=== PATIENT | female | born 1945 | race Two or more races ===

== ENCOUNTER → 2016-02-22 | Day surgery (SDC) | payer MEDICARE, OTHER ==
--- NOTE | 2016-02-18 16:53 | Pre-Procedure Note/Attestation ---
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 I attest that, if there was a reasonable possibility of needing a blood transfusion, the patient (or the patient's legal lead generation representative) was given the [facility] standardized written summary, pursuant to the Asher Maddy Blood Safety Act ([place] Health and Safety Code # 1645, as amended). I attest that I re-evaluated the patient just prior to the surgery and that there has been no change in the patient's H&P, except as documented below: MINA KIRBY Feb 18, 2016 16:53
[2016-02-22] VITALS (8 sets, daily range): BP systolic 120–131; BP diastolic 54–78
[~2016-02-22] VITALS: Ht 165.1 cm; Wt 78.5 kg
[~2016-02-22] MED LIST: ASPIR 8181 MG ORAL; Akten 3.5% 1ml Btl BOTH EYES ONE; Akten 3.5% 1ml Btl ONE; Bupivacaine 0.75% 30ml vial INJ ONE; DiphenhydrAMINE 50mg/ml Inj IVP PRN; Ketorolac 30mg Inj IV PRN; LR 1000ml 1,000 ML IVLG SCH; LR 1000ml ONE; Lidocaine 1% 10mg/ml/Epi 0.005mg/ml 30ml vial INJ ONE; Lidocaine 2% 20mg/ml/Epi 0.005mg/ml 20ml vial ONE; Maxitrol Opth Oint 3.5gm BOTH EYES ONE; Midazolam 2mg/2ml Inj ONE; NS Irrig 1000ml ONE; PAXIL10 MG ORAL; Povidone-Iodine 5% opth solution ONE; Propofol 10mg/ml 20ml IV ONE; Sterile Water Irrig 1000ml IRRIG ONE; fentaNYL 100 mcg/2 mL IV ONE; fentaNYL 100 mcg/2 mL IV PRN
--- NOTE | 2016-02-22 09:45 | Anethesia Preoperative Eval ---
Anesthesia Pre-op PMH/ROS General Date of Evaluation: Feb 22, 2016 Time of Evaluation: 09:12 Anesthesiologist: Jennifer ASA Score: ASA 2 Mallampati Score Class I : Soft palate, uvula, fauces, pillars visible Class II: Soft palate, uvula, fauces visible Class III: Soft palate, base of uvula visible Class IV: Only hard plate visible Mallampati Classification: Class II Surgeon: Adrian Diagnosis: Bilateral ptosis Surgical Procedure: Bilateral blepharoplasty Anesthesia History: none Family History: no anesthesia problems Allergies: Coded Allergies: No Known Allergies (Unverified , 02/18/16) Medications: see eMAR Past Medical History Cardiovascular: Denies: CAD, HTN, PA, arrhythmia, other, valve dz Pulmonary: Denies: COPD, YELITZA, asthma, other Gastrointestinal/Genitourinary: Reports: GERD - mild, Denies: CRI, ESRD, other Neurologic/Psychiatric: Denies: CVA, TIA, dementia, depression/anxiety, other Endocrine: Reports: hypothyroidism HEENT: Denies: SENECA-CAYUGA (L), SENECA-CAYUGA (R), cataract (L), cataract (R), glaucoma, other Hematology/Immune: Denies: DVT, anemia, bleeding disorder, other Musculoskeletal/Integumentary: Denies: DDD, DJD, OA, RA, edema, other PMH Narrative: as above PSxH Narrative: R shoulder Anesthesia Pre-op Phys. Exam Physician Exam Last Vital Signs Date Time Temp Pulse Resp B/P Pulse Ox O2 Delivery O2 Flow Rate FiO2 02/22/16 08:43 97.3 68 20 131/78 95 Room Air Constitutional: NAD Neurologic: CN 2-12 intact Cardiovascular: RRR, no M/R/G Respiratory: CTA Gastrointestinal: S/NT/ND Airway Exam Mallampati Score: Class II MO: limited Neck: stiff ROM: limited Teeth: missing Dentures: no lower, no upper Anesthesia Pre-op A/P Labs see chart Studies Pre-op Studies: EKG - NSR Risk Assessment & Plan Assessment: ASA 2 Plan: MAC Status Change Before Surgery: No Pre-Antibiotics Drug: none JOSE CHAKRABORTY M.D. Feb 22, 2016 09:45
--- NOTE | 2016-02-22 11:00 | Brief Operative Note ---
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 Morning News Anchor: None Additional Surgeons: None Anesthesiologist: Dr. Rodriguez Anesthesia: MAC Specimen: none Complications: none Condition: stable Estimated Blood Loss: minimal Drains: none Implant(s) used?: MINA Alejo Feb 22, 2016 11:00
--- NOTE | 2016-02-23 02:37 | Discharge Summary ---
DATE OF ADMISSION: 02/22/2016 DATE OF DISCHARGE: 02/22/2016 REASON FOR HOSPITALIZATION: 1. Ptosis, upper lids. 2. Entropion, upper lids. 3. Dermatochalasis, upper lids. SURGERY PERFORMED: 1. Ptosis correction, upper lids. 2. Entropion correction, upper lids. 3. Blepharoplasty, upper lids. HOSPITAL COURSE AND THE PATIENT CONDITION: The patient tolerated the surgery without complications. The patient's condition at discharge, the patient was stable at discharge. DISCHARGE MEDICATIONS: 1. TobraDex eye drops one drop q.i.d., both eyes. 2. Maxitrol eye ointment applied to the lids twice a day. 3. Keflex 500 mg one p.o. every eight hours. 4. Vicodin 5 mg/300 mg one tablet every six hours as needed for pain. RESTRICTION: The patient has to rest at home, no bending, no lifting, and no watching TV tonight. POSTOPERATIVE FOLLOWUP: The patient will be followed in my office tomorrow morning at 9 o'clock. Ángel Campbell M.D. DR: VIANNEY JOB#: [id number] CC:
--- NOTE | 2016-02-23 08:27 | Operative Note - Dictated ---
DATE OF OPERATION: 02/22/2016 FACILITY: [facility]. SURGEON: Ángel Campbell M.D. POLITICAL ADVISOR: None. ANESTHESIOLOGIST: Angel Rodriguez M.D. Anesthesia: Monitored anesthesia care (MAC) plus local anesthesia with lidocaine 2% and epinephrine 1:100,000 plus Marcaine 0.75%. PREOPERATIVE DIAGNOSES: 1. Ptosis, upper lids. 2. Entropion, upper lids. 3. Dermatochalasis, upper lids in both eyes. POSTOPERATIVE DIAGNOSES: 1. Ptosis, upper lids. 2. Entropion, upper lids. 3. Dermatochalasis, upper lids in both eyes. SURGERY PERFORMED: 1. Ptosis correction, upper lids. 2. Entropion correction, upper lids. 3. Blepharoplasty, upper lids. INDICATION FOR SURGERY: The patient is a 70-year-old lady with history of hypothyroidism and hypercholesterolemia. She is taking Synthroid, aspirin, fish oil, and Crestor. She has had hysterectomy in the past. Now, she is complaining of droopy eyelids, blurry vision, and difficulty driving because of upper lid droopiness. She is suffering from severe dermatochalasis, ptosis, and entropion in the upper lids. This is a progressive dermatochalasis of the levator palpebrae superioris muscle, which is resulting in ptosis and entropion in the upper lids. This condition changes the corneal curvature and induces astigmatism and changes the patient's vision and also droopiness of the eyelids, colored visual axis, which is a barrier for driving. The severity of the patient's dermatochalasis, ptosis, and entropion of the upper lids is clearly demonstrated on enclosed photos and the patient's visual hu. The only solution for this patient is correction of all these disfigurement and anatomy changes with surgery. INFORMED CONSENT: The nature of the surgery, risks, benefits, alternatives, and potential complications were explained to the patient in her language, Farsi. She voiced understanding. The potential complications including, but not limited to bleeding, infection, corneal exposure, over correction, under correction, ecchymosis, swelling of the face, hematoma, dry eye, loss of eyelashes, loss of eyebrows, inequality of both eyes, change in vision, even loss of her vision and loss of the eye were explained in detail to the patient, who voiced understanding and accepted all the complications. Then, she signed the consent form, which is in the chart. Description of surgery and findings: Following that, the patient was taken to the operating room in the stable condition. Lidocaine gel, Akten 3.5% were applied to the conjunctiva of both eyes. Following that, the upper lids were marked with a marking pen 10 mm above the root of the eyelashes and 10 mm below the lower part of the eyebrows. About 20 mm of the skin was left to facilitate eye closure after surgery. IV sedation was given by the anesthesiologist, Dr. Rodriguez. After adequate sedation had been achieved, the upper eyelid and eyebrows were all anesthetized with 2% lidocaine and epinephrine 1:100,000 mixed with Marcaine 0.75%. Following that, using the Bovie knife, the skin and subdermal tissue were dissected from the orbicularis oculi muscle and excised. Following that, a cut was made into the orbicularis oculi muscle and hemostasis was performed. Then, 2 fat compartments were readied. The fat compartments were sculptured conservatively. Following that, the levator palpebrae superioris muscle was dissected to the aponeurosis of the muscle and aponeurosis of the muscle was tacked about 6 mm and 6-0 Vicryl stitches on each side. Then, the palpebral fissure was compared on both sides. These were equal. Following that, the stitches with 6-0 Vicryl stitches were tied and hemostasis was performed. Following that, a wedge groove was made 3 mm above the root of the upper eyelid lashes. Following that, was excised with Vannas scissors. Following that, the wedge of the groove was stitched together with 6-0 Vicryl and the stitches were tied and hemostasis was performed. With this movement, the eyelid border rotated upwards and lashes were turned from downwards to upwards. Following that, the orbicularis oculi muscle was stitched with three 6-0 Vicryl and the stitches were tied. Following that, the skin was stitched in the fashion of continuous running stitch with 6-0 plain gut on both sides. obtained. At the end of the surgery, TobraDex eye ointment was applied to the eye and the wound. Following that, the patient was transferred to the recovery room. In the recovery room, cold compress was applied to the area. The wound was checked for bleeding, there was no bleeding. Postoperative orders and directions were given to the patient. The patient will be discharged home upon stabilization. The patient will be followed in my office tomorrow morning. Ángel Campbell M.D. DR: VIANNEY JOB#: [id number] CC:
--- NOTE | 2016-02-25 11:18 | Immediate Post-Op Evaluation ---
Immediate Post-Op Evalulation Immediate Post-Op Evalulation Procedure: Bilateral blepharoplasty Date of Evaluation: Feb 22, 2016 Time of Evaluation: 11:05 IV Fluids: 600 Blood Products: none Estimated Blood Loss: min Urinary Output: none Blood Pressure Systolic: 136 Blood Pressure Diastolic: 74 Pulse Rate: 82 Respiratory Rate: 20 O2 Sat by Pulse Oximetry: 99 Temperature (Fahrenheit): 97.3 Pain Score (1-10): 2 Nausea: No Vomiting: No Complications none Patient Status: awake, patent, none Hydration Status: adequate JOSE CHAKRABORTY M.D. Feb 25, 2016 11:18
[2016-02-25 11:20] VITALS: BP 122/58
--- NOTE | 2016-02-25 11:20 | 48 Hour Post Anesthesia Eval ---
Post Anesthesia Evaluation Procedure: Bilateral blepharoplasty Date of Evaluation: Feb 22, 2016 Time of Evaluation: 13:05 Blood Pressure Systolic: 122 0: 58 Pulse Rate: 74 Respiratory Rate: 20 Temperature (Fahrenheit): 97.6 O2 Sat by Pulse Oximetry: 98 Airway: patent Nausea: No Vomiting: No Pain Intensity: 2 Hydration Status: adequate Cardiopulmonary Status: stable Mental Status/LOC: patient returned to baseline Follow-up Care/Observations: n/a Post-Anesthesia Complications: none Follow-up care needed: ready to discharge JOSE CHAKRABORTY M.D. Feb 25, 2016 11:20
== END | disposition home or self-care (01) ==
LOC: SUR 07:50
DX: H02.403 Unspecified ptosis of bilateral eyelids (principal); H02.034 Senile entropion of left upper eyelid; H02.031 Senile entropion of right upper eyelid; H02.834 Dermatochalasis of left upper eyelid; H02.831 Dermatochalasis of right upper eyelid; H02.31 Blepharochalasis right upper eyelid; E03.9 Hypothyroidism, unspecified; E78.00 Pure hypercholesterolemia, unspecified; K21.9 Gastro-esophageal reflux disease without esophagitis; Z90.710 Acquired absence of both cervix and uterus; Z79.899 Other long term (current) drug therapy
CPT/HCPCS: 15823; 67924; J2250; J2704; J3010; J3490; J7120; 94003; 94150